=== PATIENT | male | born 1955 | race Caucasian/White ===

== ENCOUNTER 2019-09-06 07:24 | Emergency (ER) | payer BC, OTHER ==
[~2019-09-06] VITALS: Ht 172.2 cm; Wt 84.0 kg
[~2019-09-06 07:24] MED LIST: ASPI-198; ATEN25TA; ATOR80TA; CALC-196; CHOL10003; CLOP75TA; FEXO1TAB42; FISH1200; MULT-608; [UNRECOGNIZED DRUG - OTHER]
[2019-09-06] MEDS ORDERED: ASPIRIN 81 MG CHEW (CHILDREN'S ASA) PO ONE (07:45)
--- NOTE | 2019-09-06 07:50 | ED Chest Pain ---
General Chief Complaint: Chest Pain Stated Complaint: NAUSEATED, SWEATS Source: patient Exam Limitations: no limitations History of Present Illness Date Seen by Provider: Sep 06, 2019 Time Seen by Provider: 07:28 Initial Comments Patient presents to ER by private conveyance with chief complaint that about half hour prior to arrival he began to experience some sweats, nausea without vomiting and a burning pain in his left upper chest by his shoulder. He has a hi story of indigestion as well as [address] Hernandez and Dr. Chatman. He took some antacids and jumped in the shower. The burning pain and nausea seems to have passed by the time he got to the ER. He typically takes 3 and a 24 mg of aspirin daily but he has not taken any of his morning meds yet. He does not have a history of diabetes or high blood pressure but he does have hyperlipidemia controlled with statins. He denies any coughing shortness of breath orthopnea or swelling weight gain fevers chills diarrhea or dysuria. Allergies and Home Medications Allergies Coded Allergies: No Known Drug Allergies (Verified Allergy, Unknown, 05/16/08) Patient Home Medication List Home Medication List Reviewed: Yes Review of Systems Review of Systems Constitutional: No chills; diaphoresis; No fever, No malaise EENTM: No Blurred Vision, No Double Vision Respiratory: Denies Cough, Denies Shortness of Air Cardiovascular: See HPI, Chest Pain; Denies Edema, Denies Irregular Heart Rate Gastrointestinal: Denies Abdomen Distended, Denies Abdominal Pain, Denies Constipated, Denies Diarrhea Genitourinary: Denies Burning, Denies Discharge Musculoskeletal: No back pain, No joint pain Past Kzucnnu-Jdytnm-Loramc Hx Patient Social History Alcohol Use: Denies Use Recreational Drug Use: No Smoking Status: Never a Smoker Past Medical History Reproductive Disorders: No Physical Exam Vital Signs Vital Signs - First Documented 09/06/19 07:29 Temp 36.0 Pulse 61 Resp 18 B/P (MAP) 160/95 (116) Pulse Ox 97 O2 Delivery Room Air Capillary Refill : Height, Weight, BMI Height: 5'9.00" Weight: 184lbs. oz. 83.056526cd; BMI Method:Stated General Appearance: No Apparent Distress, WD/WN HEENT: PERRL/EOMI, Pharynx Normal, Moist Mucous Membranes Neck: Full Range of Motion, Normal Inspection Respiratory: Lungs Clear, Normal Breath Sounds, No Accessory Muscle Use, No Respiratory Distress, Other (mild tenderness to anterior upper left chest wall) Cardiovascular: Regular Rate, Rhythm, No Edema, No Murmur, Normal Peripheral Pulses Gastrointestinal: Non Tender, Soft Extremity: Normal Capillary Refill, Normal Inspection, No Pedal Edema Neurologic/Psychiatric: Alert, Oriented x3 Skin: Normal Color, Warm/Dry Progress/Results/Core Measures Results/Orders Lab Results Laboratory Tests Test 09/06/19 07:35 09/06/19 09:23 Range/Units White Blood Count 5.1 4.3-11.0 10^3/uL Red Blood Count 5.51 4.35-5.85 10^6/uL Hemoglobin 15.4 13.3-17.7 G/DL Hematocrit 47 40-54 % Mean Corpuscular Volume 85 80-99 FL Mean Corpuscular Hemoglobin 28 25-34 PG Mean Corpuscular Hemoglobin Concent 33 32-36 G/DL Red Cell Distribution Width 13.3 10.0-14.5 % Platelet Count 161 130-400 10^3/uL Mean Platelet Volume 10.4 7.4-10.4 FL Neutrophils (%) (Auto) 59 42-75 % Lymphocytes (%) (Auto) 33 12-44 % Monocytes (%) (Auto) 6 0-12 % Eosinophils (%) (Auto) 2 0-10 % Basophils (%) (Auto) 0 0-10 % Neutrophils # (Auto) 3.0 1.8-7.8 X 10^3 Lymphocytes # (Auto) 1.7 1.0-4.0 X 10^3 Monocytes # (Auto) 0.3 0.0-1.0 X 10^3 Eosinophils # (Auto) 0.1 0.0-0.3 10^3/uL Basophils # (Auto) 0.0 0.0-0.1 10^3/uL Prothrombin Time 12.0 L 12.2-14.7 SEC INR Comment 0.9 0.8-1.4 Activated Partial Thromboplast Time 30 24-35 SEC Sodium Level 141 135-145 MMOL/L Potassium Level 3.6 3.6-5.0 MMOL/L Chloride Level 107 98-107 MMOL/L Carbon Dioxide Level 25 21-32 MMOL/L Anion Gap 9 5-14 MMOL/L Blood Urea Nitrogen 12 7-18 MG/DL Creatinine 1.02 0.60-1.30 MG/DL Estimat Glomerular Filtration Rate > 60 BUN/Creatinine Ratio 12 Glucose Level 148 H 70-105 MG/DL Calcium Level 9.4 8.5-10.1 MG/DL Corrected Calcium 9.1 8.5-10.1 MG/DL Magnesium Level 2.2 1.6-2.4 MG/DL Total Bilirubin 0.3 0.1-1.0 MG/DL Aspartate Amino Transf (AST/SGOT) 22 5-34 U/L Alanine Aminotransferase (ALT/SGPT) 29 0-55 U/L Alkaline Phosphatase 111 40-136 U/L Myoglobin 47.3 10.0-92.0 NG/ML Troponin I < 0.028 < 0.028 <0.028 NG/ML B-Type Natriuretic Peptide < 10.0 <100.0 PG/ML Total Protein 6.9 6.4-8.2 GM/DL Albumin 4.4 3.2-4.5 GM/DL My Orders Orders - JANE FOLEY Cbc With Automated Diff (09/06/19 07:42) Magnesium (09/06/19 07:42) Chest 1 View, Ap/Pa Only (09/06/19 07:42) Ekg Tracing (09/06/19 07:42) Cardiac Profile 1 (09/06/19 07:42) Comprehensive Metabolic Panel (09/06/19 07:42) Myoglobin Serum (09/06/19 07:42) Protime With Inr (09/06/19 07:42) Partial Thromboplastin Time (09/06/19 07:42) O2 (09/06/19 07:42) Monitor-Rhythm Ecg Trace Only (09/06/19 07:42) Lipid Panel (09/07/19 06:00) Ed Iv/Invasive Line Start (09/06/19 07:42) BNP (09/06/19 07:42) Aspirin Chewable Tablet (Baby Aspirin Ch (09/06/19 07:45) Troponin I (09/06/19 09:24) Medications Given in ED Current Medications Medications Dose Ordered Sig/Thad Route Start Time Stop Time Status Last Admin Dose Admin Aspirin 324 mg ONCE ONCE PO 09/06/19 07:45 09/06/19 07:46 DC 09/06/19 07:47 324 MG Vital Signs/I&O 09/06/19 07:29 Temp 36.0 Pulse 61 Resp 18 B/P (MAP) 160/95 (116) Pulse Ox 97 O2 Delivery Room Air Progress Progress Note : Time: 07:50 Progress Note Unremarkable EKG. His symptoms seemed to improve either due to time or antacids. Plan to do a chest pain workup. If his symptoms come back we can try nitrogly cerin versus GI cocktail. He does not have any risk factors for pulmonary embolism. Wells score 0 points. Cardiac catheterization by Dr. Brar 2009 shows angiographically relatively mild coronary disease. Widely patent stents in the mid left anterior descending and mid right coronary arteries. Normal left ventricular end-diastolic pressure and systolic function of the lower limit of normal with an EF of 50%. Mild posterior basal hypokinesis. No significant mitral regurgitation. Aortic arch angiography did not indicate significant thoracic aortic aneurysm. If his initial troponin is normal then his heart score would be 3 points. We have discussed doing a rule out in the ER. Initial ECG Impression Date: Sep 06, 2019 Initial ECG Impression Time: 07:33 Initial ECG Rate: 59 Initial ECG Rhythm: Normal Sinus Initial ECG Intervals: Normal Initial ECG Impression: Normal, Nonspecific Changes Initial ECG Comparisson: Unchanged Comment Normal sinus rhythm without ST elevation or depression. Left axis deviation. Diagnostic Imaging Diagonstic Imaging: Xray Plain Films/CT/US/NM/MRI: chest (1v) Comments NAME: [facility] REC#: [id number] PT STATUS: REG ER : 1955 PHYSICIAN: JANE FOLEY MD ADMIT DATE: 09/06/19/ER Draft Date of Exam:09/06/19 CHEST 1 VIEW, AP/PA ONLY INDICATION: Cold sweats, nausea, chest pain COMPARISON: 02/25/2010 TECHNIQUE: Single radiograph of the chest dated 09/06/2019 FINDINGS: The cardiac silhouette is within normal limits in size. No significant pulmonary vascular congestion. The lungs are clear. No pleural effusion. No pneumothorax. Degenerative changes without acute osseous abnormality. IMPRESSION: Similar examination without acute cardiopulmonary abnormality. Dictated on workstation # [id number] Dict: 09/06/19821 Trans: 09/06/19825 RIGO [id number] Interpreted by: MARGARITA LEDEZMA MD Electronically signed by: Reviewed: Reviewed by Me Consults : Consulting Physician: SHANTA HERNANDEZ MD [facility] Consults Notes 0830: Discussed case lab EKG imaging and history and he agrees with a ER rule out and follow-up in the clinic tomorrow. Departure Impression Primary Impression: Chest pain Qualified Codes: R07.9 - Chest pain, unspecified Disposition: 01 HOME, SELF-CARE Condition: Stable Departure-Patient Inst. Decision time for Depature: 10:15 Referrals: HIRO CHATMAN MD (PCP) Primary Care Physician SHANTA HERNANDEZ MD [facility] Patient Instructions: Chest Pain (DC) Add. Discharge Instructions: Call Dr. Hernandez's office and request an appointment tomorrow. If you have persistent chest pain that does not respond to antacids then please return to the ER. Resume your medications as prescribed. All discharge instructions reviewed with patient and/or family. Voiced understanding. Work/School Note: Work Release Form Date Seen in the Emergency Department: Sep 06, 2019 Return to Work: Sep 07, 2019 Restrictions: No Restrictions JANE FOLEY Sep 06, 2019 07:50
[2019-09-06 07:51] LABS: BASOPHILS % (AUTO) 0 % (0-10); EOSINOPHILS # (AUTO) 0.1 10^3/uL (0.0-0.3); EOSINOPHILS % (AUTO) 2 % (0-10); HEMATOCRIT 47 % (40-54); HEMOGLOBIN 15.4 G/DL (13.3-17.7); LYMPHOCYTES # (AUTO) 1.7 X 10^3 (1.0-4.0); LYMPHOCYTES % (AUTO) 33 % (12-44); MEAN CORPUSCULAR HEMOGLOBIN 28 PG (25-34); MEAN CORPUSCULAR HGB CONC 33 G/DL (32-36); MEAN CORPUSCULAR VOLUME 85 FL (80-99); MEAN PLATELET VOLUME 10.4 FL (7.4-10.4); MONOCYTES # (AUTO) 0.3 X 10^3 (0.0-1.0); MONOCYTES % (AUTO) 6 % (0-12); NEUTROPHILS % (AUTO) 59 % (42-75); PLATELET COUNT 161 10^3/uL (130-400); RED CELL DISTRIBUTION WIDTH 13.3 % (10.0-14.5); WHITE BLOOD COUNT 5.1 10^3/uL (4.3-11.0)
[2019-09-06 08:00] LABS: INR 0.9 (0.8-1.4)
--- NOTE | 2019-09-06 08:00 | NUR ---
PATIENT DECLINED BLANKET WHEN ASKED.
[2019-09-06 08:08] LABS: ALANINE AMINOTRANSFERASE 29 U/L (0-55); ALBUMIN 4.4 GM/DL (3.2-4.5); ALKALINE PHOSPHATASE 111 U/L (40-136); BILIRUBIN,TOTAL 0.3 MG/DL (0.1-1.0); BUN/CREATININE RATIO 12; CALCIUM 9.4 MG/DL (8.5-10.1); CARBON DIOXIDE 25 MMOL/L (21-32); CHLORIDE 107 MMOL/L (98-107); CREATININE SERUM 1.02 MG/DL (0.60-1.30); GFR ESTIMATED > 60; GLUCOSE 148 MG/DL (70-105); MAGNESIUM 2.2 MG/DL (1.6-2.4); POTASSIUM 3.6 MMOL/L (3.6-5.0); SODIUM 141 MMOL/L (135-145); TOTAL PROTEIN 6.9 GM/DL (6.4-8.2)
--- NOTE | 2019-09-06 08:25 | NUR ---
PATIENT INFORMED BY DR FOLEY THAT 1ST TROPONIN WAS OK WOULD DRAW A 2ND ONE AT 0930 FOR RULE OUT.
--- NOTE | 2019-09-06 08:26 | Diagnostic Imaging Report ---
INDICATION: Cold sweats, nausea, chest pain COMPARISON: 02/25/2010 TECHNIQUE: Single radiograph of the chest dated 09/06/2019 FINDINGS: The cardiac silhouette is within normal limits in size. No significant pulmonary vascular congestion. The lungs are clear. No pleural effusion. No pneumothorax. Degenerative changes without acute osseous abnormality. IMPRESSION: Similar examination without acute cardiopulmonary abnormality. Dictated by: Dictated on workstation # [id number]
--- NOTE | 2019-09-06 09:27 | NUR ---
2ND TROPONIN DRAWN AND SENT TO LAB.
[2019-09-06 10:23] VITALS: BP 133/82
== END 2019-09-06 10:18 | disposition home or self-care (01) ==
LOC: EDUNIT# 07:24 → ER 07:27
DX: R07.9 Chest pain, unspecified (principal)
CPT/HCPCS: 36415; 71045; 80053; 83735; 83874; 83880; 84484; 85025; 85610; 85730; 93005; 93041

== ENCOUNTER → 2019-11-07 | Outpatient (CLI) | payer OTHER ==
[~2019-11-07] MED LIST changes: +CATHETER FLUSH 10 ML SYR IV PRN
[2019-11-07 13:18] VITALS: BP 164/91
[2019-11-07 13:34] VITALS: BP 252/81
--- NOTE | 2019-11-07 16:22 | STRESS TEST ---
DATE OF SERVICE: 11/07/2019 RESTING AND POST EXERCISE TECHNETIUM-99M TETROFOSMIN SPECT CT IMAGING ORDERING PHYSICIAN: Dr. Hernandez. PRIMARY PHYSICIAN: Dr. Chatman. CLINICAL DIAGNOSES: Coronary artery disease. Baseline images were carried out after injection of 10.02 mCi of technetium-99m Tetrofosmin. This was followed by exercise on a treadmill. Ulises protocol was employed. Heart rate response to exercise was normal. Blood pressure response to exercise was hypertensive. There was considerable baseline artifact at peak exercise, but there did not appear to be significant ST segment deviation. Test was stopped on account of fatigue. After the patient had attained more than 85% of maximum predicted heart rate and had indicated that he would not be able go for more than another minute, 29.5 mCi of technetium-99m Tetrofosmin were injected and the exercise was continued for another minute. The patient tolerated the procedure well. Review of images at rest and following stress does not indicate distinct perfusion defects consistent with significant myocardial ischemia or infarction. Gated images show normal global left ventricular systolic function, normal regional wall motion. Left ventricular ejection fraction is calculated to be 74%. Left ventricular end diastolic volume is 63 mL. TID is absent (1). CONCLUSIONS: 1. No evidence of any significant myocardial ischemia or infarction on this study. 2. Normal regional wall motion. 3. Normal global left ventricular systolic function with a calculated ejection fraction of 74%. Job ID: [id number] DocumentID: [id number] Dictated Date: 11/07/2019 15:38:50 [employer] Date: 11/07/2019 16:21:20 Dictated By: SHANTA HERNANDEZ MD, MA, FACP, FACC,
== END ==
LOC: CARD 11:51
PROVIDERS: ATTEND Internal Medicine Cardiovascular Disease
DX: I25.10 Atherosclerotic heart disease of native coronary artery without angina pectoris (principal); I65.29 Occlusion and stenosis of unspecified carotid artery; E78.5 Hyperlipidemia, unspecified
CPT/HCPCS: 78452; 93017

== ENCOUNTER → 2019-11-13 | Outpatient (CLI) | payer OTHER ==
[~2019-11-13] MED LIST changes: -CATHETER FLUSH 10 ML SYR IV PRN
== END ==
LOC: CARD 07:35
PROVIDERS: ATTEND Internal Medicine Cardiovascular Disease
DX: I25.10 Atherosclerotic heart disease of native coronary artery without angina pectoris (principal); I77.89 Other specified disorders of arteries and arterioles; R07.9 Chest pain, unspecified; E78.5 Hyperlipidemia, unspecified; Z79.82 Long term (current) use of aspirin; Z79.899 Other long term (current) drug therapy
CPT/HCPCS: 93306

== ENCOUNTER 2021-05-12 08:04 | Emergency (ER) | payer OTHER ==
[~2021-05-12] VITALS: Ht 175 cm; Wt 81.8 kg
[2021-05-12] MEDS ORDERED: KETOROLAC 30 MG/ML VIAL IVP STA (08:25)
[2021-05-12 08:34] LABS: BASOPHILS % (AUTO) 0 % (0-10); EOSINOPHILS # (AUTO) 0.1 10^3/uL (0.0-0.3); EOSINOPHILS % (AUTO) 2 % (0-10); HEMATOCRIT 48 % (40-54); HEMOGLOBIN 15.5 g/dL (13.3-17.7); LYMPHOCYTES # (AUTO) 1.4 10^3/uL (1.0-4.0); LYMPHOCYTES % (AUTO) 30 % (12-44); MEAN CORPUSCULAR HEMOGLOBIN 29 pg (25-34); MEAN CORPUSCULAR HGB CONC 32 g/dL (32-36); MEAN CORPUSCULAR VOLUME 88 fL (80-99); MEAN PLATELET VOLUME 10.2 fL (9.0-12.2); MONOCYTES # (AUTO) 0.3 10^3/uL (0.0-1.0); MONOCYTES % (AUTO) 7 % (0-12); NEUTROPHILS # (AUTO) 2.9 10^3/uL (1.8-7.8); NEUTROPHILS % (AUTO) 62 % (42-75); PLATELET COUNT 174 10^3/uL (130-400); WHITE BLOOD COUNT 4.7 10^3/uL (4.3-11.0)
[2021-05-12 08:43] LABS: ALBUMIN 4.2 GM/DL (3.2-4.5); CHLORIDE 104 MMOL/L (98-107); SODIUM 140 MMOL/L (135-145)
[2021-05-12 08:44] LABS: CALCIUM 8.9 MG/DL (8.5-10.1)
[2021-05-12 08:45] LABS: GLUCOSE 168 MG/DL (70-105); TOTAL PROTEIN 6.7 GM/DL (6.4-8.2)
[2021-05-12 08:46] LABS: CARBON DIOXIDE 25 MMOL/L (21-32)
[2021-05-12 08:47] LABS: BILIRUBIN,TOTAL 0.5 MG/DL (0.1-1.0)
[2021-05-12 08:49] LABS: ALKALINE PHOSPHATASE 83 U/L (40-136); CREATININE SERUM 0.89 MG/DL (0.60-1.30); GFR ESTIMATED > 60
[2021-05-12 08:50] LABS: BUN/CREATININE RATIO 15
--- NOTE | 2021-05-12 08:51 | Diagnostic Imaging Report ---
INDICATION: Chest pain. Portable chest 8:37 AM FINDINGS: Heart size and pulmonary vascularity are normal. Lungs are clear. There are no effusions or pneumothoraces. IMPRESSION: Negative chest. Dictated by: Dictated on workstation # [id number]
[2021-05-12 08:52] LABS: ALANINE AMINOTRANSFERASE 34 U/L (0-55)
--- NOTE | 2021-05-12 08:53 | ED Chest Pain ---
General Chief Complaint: Chest Pain Stated Complaint: CHEST PAIN Nursing Triage Note: C/O CHEST PAIN THAT GOES TO LEFT ARM AND STATES LEFT HAND IS NUMB. STARTED LAST HS Nursing Sepsis Screen: No Definite Risk Source: patient Exam Limitations: no limitations History of Present Illness Date Seen by Provider: May 12, 2021 Time Seen by Provider: 08:11 Initial Comments Here with report of chest pain that is central and radiates to the left arm. States the left hand is slightly numb. Started last night. Has had intermittent episodes that seem to be worsening over time. Does have history of previous heart stents in his 40s and 50s with angioplasty a few years ago. Marilee trujillos with Dr. BUTCHER. Does take aspirin 324 mg daily and has had that 12 hours ago. 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 Despite trying to eat and drink normally, things have not improved as he was have suspected so presents for further evaluation. Timing/Duration: changing over time, intermittent, 12-24 hours Severity/Quality: moderate, pressure Location: central Radiation: arms (Left) Activities at Onset: other Prior CP/Workup: cardiac cath, echocardiography ASA po [employer]: Yes NTG SL [employer]: No Associated Symptoms: No abdominal pain, No back pain, No diaphoresis, No fatigue, No fever/chills, No nausea/vomiting, No shortness of breath, No weakness Allergies and Home Medications Allergies Coded Allergies: No Known Drug Allergies (Verified , 05/16/08) Patient Home Medication List Home Medication List Reviewed: Yes Review of Systems Review of Systems Constitutional: see HPI EENTM: No Symptoms Reported Respiratory: Denies Cough, Denies Shortness of Air Cardiovascular: Chest Pain; Denies Edema Gastrointestinal: Denies Nausea, Denies Vomiting Genitourinary: No Symptoms Reported Musculoskeletal: see HPI; No back pain; muscle pain Skin: no symptoms reported Psychiatric/Neurological: No Symptoms Reported All Other Systems Reviewed Negative Unless Noted: Yes Past Eyotsfm-Lfwkqg-Lowfus Hx Past Med/Social Hx: Reviewed Nursing Past Med/Soc Hx Patient Social History Alcohol Use: Denies Use Smoking Status: Never a Smoker Recent Infectious Disease Expo: No Recent Hopitalizations: No Seasonal Allergies Seasonal Allergies: No Past Medical History Surgeries: Yes (lt shoulder reduction, bilat knee cartilage removal) Respiratory: No Cardiac: Yes High Cholesterol Neurological: No Reproductive Disorders: No Genitourinary: No Gastrointestinal: No Musculoskeletal: No Endocrine: No HEENT: No Cancer: No Psychosocial: No Integumentary: No Blood Disorders: No Family Medical History Reviewed Nursing Family Hx Physical Exam Vital Signs Vital Signs - First Documented 05/12/21 08:17 Temp 36.7 Pulse 56 Resp 18 B/P (MAP) 145/95 (112) Pulse Ox 98 O2 Delivery Room Air Capillary Refill : Less Than 3 Seconds Height, Weight, BMI Height: 5'9.00" Weight: 184lbs. oz. 83.321310zr; 26.00 BMI Method:Stated General Appearance: No Apparent Distress, WD/WN HEENT: PERRL/EOMI, Pharynx Normal Neck: Non Tender, Supple Respiratory: Lungs Clear, Normal Breath Sounds Cardiovascular: Regular Rate, Rhythm, No Murmur Gastrointestinal: Non Tender, Soft Extremity: Normal Range of Motion, Non Tender Neurologic/Psychiatric: Alert, Oriented x3 Skin: Normal Color, Warm/Dry Progress/Results/Core Measures Results/Orders Lab Results Laboratory Tests Test 05/12/21 08:12 05/12/21 10:15 05/12/21 10:22 Range/Units White Blood Count 4.7 4.3-11.0 10^3/uL Red Blood Count 5.44 4.30-5.52 10^6/uL Hemoglobin 15.5 13.3-17.7 g/dL Hematocrit 48 40-54 % Mean Corpuscular Volume 88 80-99 fL Mean Corpuscular Hemoglobin 29 25-34 pg Mean Corpuscular Hemoglobin Concent 32 32-36 g/dL Red Cell Distribution Width 13.1 10.0-14.5 % Platelet Count 174 130-400 10^3/uL Mean Platelet Volume 10.2 9.0-12.2 fL Immature Granulocyte % (Auto) 0 % Neutrophils (%) (Auto) 62 42-75 % Lymphocytes (%) (Auto) 30 12-44 % Monocytes (%) (Auto) 7 0-12 % Eosinophils (%) (Auto) 2 0-10 % Basophils (%) (Auto) 0 0-10 % Neutrophils # (Auto) 2.9 1.8-7.8 10^3/uL Lymphocytes # (Auto) 1.4 1.0-4.0 10^3/uL Monocytes # (Auto) 0.3 0.0-1.0 10^3/uL Eosinophils # (Auto) 0.1 0.0-0.3 10^3/uL Basophils # (Auto) 0.0 0.0-0.1 10^3/uL Immature Granulocyte # (Auto) 0.0 0.0-0.1 10^3/uL Sodium Level 140 135-145 MMOL/L Potassium Level 4.0 3.6-5.0 MMOL/L Chloride Level 104 98-107 MMOL/L Carbon Dioxide Level 25 21-32 MMOL/L Anion Gap 11 5-14 MMOL/L Blood Urea Nitrogen 13 7-18 MG/DL Creatinine 0.89 0.60-1.30 MG/DL Estimat Glomerular Filtration Rate > 60 BUN/Creatinine Ratio 15 Glucose Level 168 H 70-105 MG/DL Calcium Level 8.9 8.5-10.1 MG/DL Corrected Calcium 8.7 8.5-10.1 MG/DL Magnesium Level 2.0 1.6-2.4 MG/DL Total Bilirubin 0.5 0.1-1.0 MG/DL Aspartate Amino Transf (AST/SGOT) 28 5-34 U/L Alanine Aminotransferase (ALT/SGPT) 34 0-55 U/L Alkaline Phosphatase 83 40-136 U/L Myoglobin 56.4 10.0-92.0 NG/ML Troponin I < 0.028 < 0.028 <0.028 NG/ML Total Protein 6.7 6.4-8.2 GM/DL Albumin 4.2 3.2-4.5 GM/DL D-Dimer < 0.27 0.00-0.49 UG/ML My Orders Orders - CYNTHIA NETTLES MD Cbc With Automated Diff (05/12/21 08:25) Magnesium (05/12/21 08:25) Chest 1 View, Ap/Pa Only (05/12/21 08:25) Ekg Tracing (05/12/21 08:25) Comprehensive Metabolic Panel (05/12/21 08:25) Myoglobin Serum (05/12/21 08:25) O2 (05/12/21 08:25) Monitor-Rhythm Ecg Trace Only (05/12/21 08:25) Lipid Panel (05/13/21 06:00) Ed Iv/Invasive Line Start (05/12/21 08:25) Fibrin Degradation Products (05/12/21 08:25) Troponin I (05/12/21 08:25) Ketorolac Injection (Toradol Injection) (05/12/21 08:25) Troponin I (05/12/21 10:15) Vital Signs/I&O 05/12/21 05/12/21 08:17 08:17 Temp 36.7 Pulse 56 Resp 18 B/P (MAP) 145/95 (112) Pulse Ox 98 O2 Delivery Room Air Room Air Blood Pressure Mean: 112 Progress Progress Note : Progress Note Seen and evaluated. IV, labs, chest x-ray and EKG ordered. Toradol 30 mg IV ordered. Monitor patient. 1030: Pain resolved. We will repeat troponin and monitor. 1115: Pain still resolved. Second set of troponin is negative. I did discuss the case with Dr. BUTCHER. He will see the patient in office on Wednesday. This was discussed with the patient who will call and make appointment for Wednesday. Discharged home with return precautions. Patient verbalized understanding of instructions and agreement with plan. Initial ECG Impression Date: May 12, 2021 Initial ECG Impression Time: 08:07 Initial ECG Rate: 56 Initial ECG Rhythm: Normal Sinus Comment Sinus rhythm with left axis deviation. No evidence of ST elevation [place]. Similar to previous of 09/06/2019. Interpreted by me. Diagnostic Imaging Diagonstic Imaging: Xray Plain Films/CT/US/NM/MRI: chest Comments NAME: [facility] REC#: [id number] PT STATUS: REG ER : 1955 PHYSICIAN: CYNTHIA NETTLES MD ADMIT DATE: 05/12/21/ER Draft Date of Exam:05/12/21 CHEST 1 VIEW, AP/PA ONLY INDICATION: Chest pain. Portable chest 8:37 AM FINDINGS: Heart size and pulmonary vascularity are normal. Lungs are clear. There are no effusions or pneumothoraces. IMPRESSION: Negative chest. Dictated on workstation # [id number] Dict: 05/12/2149 Trans: 05/12/2150 [id number] Interpreted by: CYNTHIA STEARNS MD Electronically signed by: Departure Impression Primary Impression: Chest pain Qualified Codes: R07.9 - Chest pain, unspecified Disposition: HOME, SELF-CARE Condition: Improved Departure-Patient Inst. Decision time for Depature: 11:16 Referrals: [facility], FLOYD R MD (PCP/Family) Primary Care Physician Patient Instructions: Chest Pain (DC) Add. Discharge Instructions: All discharge instructions reviewed with patient and/or family. Voiced understanding. Continue home medications as previously prescribed. Call Dr. BUTCHER's office today for appointment for Wednesday. Let them know the case was discussed with him and he wants to see you on Wednesday. Return for worse pain, fever, vomiting, weakness, breathing problems or other concerns as needed. Copy Copies To 1: RONNY JONES MD Copies To 2: SHANTA BUTCHER MD [facility] CYNTHIA NETTLES MD May 12, 2021 08:53
[2021-05-12 11:20] VITALS: BP 125/81
== END 2021-05-12 11:25 | disposition home or self-care (01) ==
LOC: EDUNIT# 08:04 → ER 08:07
DX: R07.9 Chest pain, unspecified (principal)
CPT/HCPCS: 36415; 71045; 80053; 83735; 83874; 84484; 85025; 85379; 93005

== ENCOUNTER 2021-05-13 16:36 | Inpatient (IN) | payer OTHER ==
[~2021-05-13] VITALS: Ht 175.3 cm; Wt 82.7 kg
[2021-05-13] VITALS (9 sets, daily range): BP systolic 106–184; BP diastolic 57–104
--- NOTE | 2021-05-13 16:56 | ED Chest Pain ---
General Stated Complaint: CHEST PAIN Source: patient Exam Limitations: no limitations History of Present Illness Date Seen by Provider: May 13, 2021 Time Seen by Provider: 16:40 Initial Comments Patient is a 66-year-old man who presents to the emergency department today with a chief complaint of substernal chest pain. Patient was seen in the emergency department yesterday with similar complaints of pain. He complains of being just a little bit nauseated. No significant shortness of breath. Patient states that he was given a muscle relaxer and some pain meds in the emergency department yesterday and felt better at discharge. He states today when he was attempting to make of appointment with Dr. Brar he started having significantly increased pain that he rated a "9 or 10". He currently rates his discomfort at a "7". Patient states that this pain reminds him of the pain that he had when he had prior stents placed approximately 10 and 20 years ago. Patient denies any recent illnesses such as fevers, cough, congestion, cold symptoms. He denies any vomiting or diarrhea. No urinary complaints. He states he took a full-strength aspirin just prior to coming to the emergency department today. All other review of systems reviewed and negative except as stated above. Timing/Duration: 1-3 hours Severity/Quality: moderate, pressure, tightness Location: substernal Radiation: no radiation Activities at Onset: none ASA po QUANTITY SURVEYOR: Yes NTG SL QUANTITY SURVEYOR: No Associated Symptoms: denies symptoms Allergies and Home Medications Allergies Uncoded Allergies: morphin (Adverse Reaction, Severe, 05/14/21) Home Medications Acetaminophen 500 Mg Tablet, 1,000 MG PO Q8H PRN for PAIN-MILD (1-4), (Reported) Last Action: Reviewed Aspirin 81 Mg , 81 MG PO DAILY Prescribed by: JORDEN STEVENS on 05/15/21 0645 Atorvastatin Calcium 80 Mg Tablet, 80 MG PO HS, (Reported) Last Action: Reviewed Calcium Carbonate 300 Mg Tab.chew, 300-600 MG PO Q6H PRN for HEARTBURN, (Reported) Last Action: Reviewed Calcium Carbonate 500 Mg Tablet, 500 MG PO HS, (Reported) Last Action: Reviewed Diclofenac Sodium 100 Gm Gel..gram., 1 APPLIC TP QID PRN for PAIN-BREAKTHROUGH, (Reported) APPLIES TO KNEES Last Action: Reviewed Fexofenadine HCl 180 Mg Tablet, 180 MG PO HS, (Reported) Last Action: Reviewed Glucosamine Sulfate 2Kcl 1,000 Mg Tablet, 2,000 MG PO HS, (Reported) Last Action: Reviewed Multivit-Min/Hrb Cb121 1 Each Capsule, 2 EACH PO HS, (Reported) Last Action: Reviewed Reddick-3/Dha/Epa/Fish Oil 1 Each Capsule, 4 EACH PO HS, (Reported) Last Action: Reviewed Potassium Gluconate 99 Mg Tablet.er, 198 MG PO HS, (Reported) Last Action: Reviewed Ticagrelor 90 Mg Tablet, 90 MG PO BID Prescribed by: JORDEN STEVENS on 05/15/21 0645 Ubidecarenone 100 Mg Capsule, 100 MG PO HS, (Reported) Last Action: Reviewed Patient Home Medication List Home Medication List Reviewed: Yes Review of Systems Review of Systems Constitutional: see HPI EENTM: No Symptoms Reported Respiratory: No Symptoms Reported Cardiovascular: Chest Pain Gastrointestinal: No Symptoms Reported Genitourinary: No Symptoms Reported Musculoskeletal: no symptoms reported Skin: no symptoms reported All Other Systems Reviewed Negative Unless Noted: Yes Past Boduoks-Fqxlwl-Gvaxjo Hx Patient Social History Recent Hopitalizations: No Seasonal Allergies Seasonal Allergies: No Past Medical History Surgeries: Yes (lt shoulder reduction, bilat knee cartilage removal) Respiratory: No Cardiac: Yes High Cholesterol Neurological: No Reproductive Disorders: No Genitourinary: No Gastrointestinal: No Musculoskeletal: No Endocrine: No HEENT: No Cancer: No Psychosocial: No Integumentary: No Blood Disorders: No Physical Exam Vital Signs Vital Signs - First Documented Capillary Refill : Height, Weight, BMI Height: 5'9.00" Weight: 184lbs. oz. 83.818014lz; 26.00 BMI Method:Stated General Appearance: No Apparent Distress, WD/WN Neck: Normal Inspection Respiratory: Lungs Clear, Normal Breath Sounds, No Accessory Muscle Use, No Respiratory Distress Cardiovascular: Regular Rate, Rhythm, Normal Peripheral Pulses Gastrointestinal: Non Tender, Soft Extremity: Normal Capillary Refill, Normal Inspection, Normal Range of Motion, Non Tender, No Calf Tenderness Neurologic/Psychiatric: Alert, Oriented x3, No Motor/Sensory Deficits, Normal Mood/Affect Skin: Normal Color, Warm/Dry Progress/Results/Core Measures Results/Orders Lab Results Laboratory Tests Test 05/13/21 16:45 Range/Units White Blood Count 5.6 4.3-11.0 10^3/uL Red Blood Count 5.30 4.30-5.52 10^6/uL Hemoglobin 15.1 13.3-17.7 g/dL Hematocrit 46 40-54 % Mean Corpuscular Volume 87 80-99 fL Mean Corpuscular Hemoglobin 29 25-34 pg Mean Corpuscular Hemoglobin Concent 33 32-36 g/dL Red Cell Distribution Width 13.1 10.0-14.5 % Platelet Count 172 130-400 10^3/uL Mean Platelet Volume 10.2 9.0-12.2 fL Immature Granulocyte % (Auto) 0 % Neutrophils (%) (Auto) 65 42-75 % Lymphocytes (%) (Auto) 26 12-44 % Monocytes (%) (Auto) 8 0-12 % Eosinophils (%) (Auto) 1 0-10 % Basophils (%) (Auto) 0 0-10 % Neutrophils # (Auto) 3.7 1.8-7.8 10^3/uL Lymphocytes # (Auto) 1.4 1.0-4.0 10^3/uL Monocytes # (Auto) 0.4 0.0-1.0 10^3/uL Eosinophils # (Auto) 0.1 0.0-0.3 10^3/uL Basophils # (Auto) 0.0 0.0-0.1 10^3/uL Immature Granulocyte # (Auto) 0.0 0.0-0.1 10^3/uL Sodium Level 141 135-145 MMOL/L Potassium Level 4.0 3.6-5.0 MMOL/L Chloride Level 105 98-107 MMOL/L Carbon Dioxide Level 25 21-32 MMOL/L Anion Gap 11 5-14 MMOL/L Blood Urea Nitrogen 16 7-18 MG/DL Creatinine 0.85 0.60-1.30 MG/DL Estimat Glomerular Filtration Rate > 60 BUN/Creatinine Ratio 19 Glucose Level 119 H 70-105 MG/DL Calcium Level 9.1 8.5-10.1 MG/DL Total Creatine Kinase 119 30-200 U/L Creatine Kinase MB 3.2 <6.6 NG/ML Troponin I < 0.028 <0.028 NG/ML My Orders Orders - KASI ROONEY MD Ed Iv/Invasive Line Start (05/13/21 16:56) Cbc With Automated Diff (05/13/21 16:56) Basic Metabolic Panel (05/13/21 16:56) Creatine Kinase (05/13/21 16:56) Creatine Kinase Mb (05/13/21 16:56) Troponin I (05/13/21 16:56) Ekg Tracing (05/13/21 16:56) Nitroglycerin 0.4 Mg Btl 25's (Nitrostat (05/13/21 17:00) Fentanyl Inj (Sublimaze Injection) (05/13/21 17:30) Medications Given in ED Vital Signs/I&O 05/13/21 05/13/21 16:38 16:38 Temp 36.9 Pulse 65 Resp 20 B/P (MAP) 184/101 (128) O2 Delivery Room Air Room Air Progress Progress Note : Time: 18:03 Progress Note Patient is feeling better after sublingual nitro x1 and then fentanyl 25 mcg IV. Case is discussed with Dr. Diana gallego for cardiology as well as the patient's primary care physician who accepts the patient for admission Initial ECG Impression Date: May 13, 2021 Initial ECG Impression Time: 16:43 Initial ECG Rate: 62 Initial ECG Rhythm: Normal Sinus Initial ECG Intervals: Normal Initial ECG Impression: Normal Departure Communication (Admissions) Time/Spoke to Admitting Phy: 17:[address] Waldrop accepts patient for admission Time/Spoke to Consulting Phy: 17:[address] Diana gallego for cardiology recommends n.p.o. after midnight Impression Primary Impression: Unstable angina Additional Impression: History of coronary artery disease Disposition: ADMITTED INPATIENT Condition: Stable Admissions Decision to Admit Reason: Admit from ER (General) Decision to Admit/Date: May 13, 2021 Time/Decision to Admit Time: 18:03 Departure-Patient Inst. Referrals: HIRO CLEMENTS MD (PCP/Family) Primary Care Physician Scripts Aspirin (Aspirin EC) 81 Mg Tablet. 81 MG PO DAILY, #30 TAB 4 Refills Prov: JORDEN STEVENS MD 05/15/21 Ticagrelor (Brilinta) 90 Mg Tablet 90 MG PO BID, #60 TAB 3 Refills Prov: JORDEN STEVENS MD 05/15/21 KASI ROONEY MD May 13, 2021 16:56
[2021-05-13] MEDS ORDERED: NITROGLYCERIN 0.4 MG SL TABS BTL 25'S SL PRN (17:00)
[2021-05-13 17:02] LABS: BASOPHILS % (AUTO) 0 % (0-10); EOSINOPHILS # (AUTO) 0.1 10^3/uL (0.0-0.3); EOSINOPHILS % (AUTO) 1 % (0-10); HEMATOCRIT 46 % (40-54); HEMOGLOBIN 15.1 g/dL (13.3-17.7); LYMPHOCYTES # (AUTO) 1.4 10^3/uL (1.0-4.0); LYMPHOCYTES % (AUTO) 26 % (12-44); MEAN CORPUSCULAR HEMOGLOBIN 29 pg (25-34); MEAN CORPUSCULAR HGB CONC 33 g/dL (32-36); MEAN CORPUSCULAR VOLUME 87 fL (80-99); MEAN PLATELET VOLUME 10.2 fL (9.0-12.2); MONOCYTES # (AUTO) 0.4 10^3/uL (0.0-1.0); MONOCYTES % (AUTO) 8 % (0-12); NEUTROPHILS # (AUTO) 3.7 10^3/uL (1.8-7.8); NEUTROPHILS % (AUTO) 65 % (42-75); PLATELET COUNT 172 10^3/uL (130-400); WHITE BLOOD COUNT 5.6 10^3/uL (4.3-11.0)
[2021-05-13 17:11] LABS: CHLORIDE 105 MMOL/L (98-107); SODIUM 141 MMOL/L (135-145)
[2021-05-13 17:12] LABS: CALCIUM 9.1 MG/DL (8.5-10.1)
[2021-05-13 17:13] LABS: GLUCOSE 119 MG/DL (70-105)
[2021-05-13 17:14] LABS: CARBON DIOXIDE 25 MMOL/L (21-32)
[2021-05-13 17:17] LABS: CREATININE SERUM 0.85 MG/DL (0.60-1.30); GFR ESTIMATED > 60
[2021-05-13 17:18] LABS: BUN/CREATININE RATIO 19
[2021-05-13 17:19] LABS: CREATINE KINASE 119 U/L (30-200)
[2021-05-13 17:25] LABS: CREATINE KINASE MB 3.2 NG/ML (<6.6)
[2021-05-13] MEDS ORDERED: fentaNYL INJ 100 MCG/2 ML AMP IVP ONE (17:30)
[2021-05-13] MEDS ORDERED: CATHETER FLUSH 10 ML SYR IV PRN (18:45)
[2021-05-13] MEDS ORDERED: RT-ALBUTEROL SULF 2.5 MG/3 ML PRE-MIX VIAL INH PRN (19:30)
[2021-05-13] MEDS: morphine INJ 4 MG/ML 1 ML (VIAL/SYRINGE) IV PRN (21:14)
[2021-05-13] MEDS: CATHETER FLUSH 10 ML SYR IV SCH (21:15)
[2021-05-13] MEDS: NITROGLYCERIN 0.4 MG SL TABS BTL 25'S SL PRN (21:19)
[2021-05-13] MEDS ORDERED: NS IV 1000 ML 1,000 ML ONE (21:32)
[2021-05-13] MEDS ORDERED: PANTOPRAZOLE 40 MG (PROTONIX) VIAL IV ONE (22:00)
--- NOTE | 2021-05-13 22:30 | Pulmonary Consultation ---
History of Present Illness History of Present Illness Date Seen by Provider: May 13, 2021 Time Seen by Provider: 22:30 Date of Admission 66 y/o male sent to the ICU from the medical floor for chest pain. Troponns drawn and were normal EKG: no stemi or ST depressions Given NTG and morphine and a fluid bolus for hypotension Cardiology on consult PLAN: serial troponins and EKGs History of Present Illness 66 y/o male admitted to ICU with chest pain, negative troponins and EKGs Allergies and Home Medications Allergies Coded Allergies: No Known Drug Allergies (Verified , 05/16/08) Past Medical/Social/Family Hx Patient Social History Tobacco Use?: No Smoking Status: Never a Smoker Smokeless Tobacco Frequency: Never a User Use of E-Cig and/or Vaping dev: No Substance use?: No Alcohol Use?: Yes Alcohol type: Beer Alcohol Frequency: Several times a month Pt stated abuse/neglect: No Immunizations Up To Date Influenza Vaccine Up-to-Date: Yes; Up-to-Date First/Initial COVID19 Vaccinat: 01/29/21 Second COVID19 Vaccination Viet: JANUARY 2021 Tetanus Booster (TDap): More Than 5 Years Hepatitis A: No Hepatitis B: No TB Skin Test: None Current Status Advance Directives: Yes Advance Directive Location: [employer] Communicates: Verbally Primary Language: Yoruba Preferred Spoken Language: Yoruba Is interpretation needed?: No Implanted or Applied Medical D: None Review of Systems Constitutional: No no symptoms reported, No see HPI, No chills, No diaphoresis, No dizziness, No fever, No malaise, No weakness, No weight gain, No weight loss, No other EENTM: No see HPI, No no symptoms reported, No ear discharge, No hearing loss, No ear pain, No blurred vision, No double vision, No eye pain, No tearing, No vision loss, No dental problems, No hoarseness, No mouth pain, No mouth swelling, No epistaxis, No nose congestion, No nose pain, No throat pain, No throat swelling, No other Respiratory: No no symptoms reported, No see HPI, No cough, No dyspnea on exertion, No hemoptysis, No orthopnea, No phlegm, No short of breath, No stridor, No wheezing, No other Cardiovascular: chest pain Gastrointestinal: No RUQ, No LUQ, No RLQ, No LLQ, No no symptoms reported, No see HPI, No abdominal pain, No constipation, No diarrhea, No dysphagia, No hematemesis, No heartburn, No jaundice, No loss of appetite, No melena, No nausea, No vomiting, No other Genitourinary: No no symptoms reported, No see HPI, No decreased output, No discharge, No dysuria, No frequency, No hematuria, No hesitancy, No incontinence, No nocturia, No pain, No other Skin: No no symptoms reported, No see HPI, No change in color, No change in hair/nails, No dryness, No hx of skin cancer, No lesions, No lumps, No pruritus, No rash, No other Psychiatric/Neurological: Denies No Symptoms Reported, Denies See HPI, Denies Anxiety, Denies Depressed, Denies Emotional Problems, Denies Headache, Denies Numbness, Denies Paresthesia, Denies Pre-Existing Deficit, Denies Seizure, Denies Tingling, Denies Tremors, Denies Weakness, Denies Other All Other Systems Reviewed Negative Unless Noted: Yes (Negative excepted noted.) Sepsis Event Evaluation Height, Weight, BMI Height: 5'9.00" Weight: 184lbs. oz. 83.555483se; 26.91 BMI Method:Stated Exam Exam Patient acknowledged, consented, and participated in this virtual visit which was conducted using real time audio/video Vital Signs Date Time Temp Pulse Resp B/P (MAP) Pulse Ox O2 Delivery O2 Flow Rate FiO2 05/13/21 20:14 36.6 53 18 115/74 (88) 97 Room Air 05/13/21 19:31 67 05/13/21 19:17 36.9 65 05/13/21 19:10 36.7 52 16 134/78 98 Room Air 05/13/21 16:38 Room Air 05/13/21 16:38 36.9 65 20 184/101 (128) Room Air Height & Weight Height: 5'9.00" Weight: 184lbs. oz. 83.808217wu; 26.91 BMI Method:Stated General Appearance: No Apparent Distress, WD/WN Neck: Normal Inspection Respiratory: Lungs Clear, Normal Breath Sounds, No Accessory Muscle Use, No Respiratory Distress Cardiovascular: Regular Rate, Rhythm, Normal Peripheral Pulses Capillary Refill: Less Than 3 Seconds Extremity: Normal Capillary Refill, Normal Inspection, Normal Range of Motion, Non Tender, No Calf Tenderness Neurologic/Psychiatric: Alert, Oriented x3, No Motor/Sensory Deficits, Normal Mood/Affect Skin: Normal Color, Warm/Dry Results Lab Laboratory Tests 05/13/21 16:45 Assessment/Plan Assessment/Plan Critical Care: Critically Ill Patient Time spent with patient (mins): 15 Time spent on discussion(mins): 5 PIA ORDONEZ MD May 13, 2021 22:30
[2021-05-13] MEDS: ENOXAPARIN 80 MG/0.8 ML (LOVENOX) SYR SC SCH (22:40)
[2021-05-14] VITALS (26 sets, daily range): BP systolic 110–175; BP diastolic 60–102
[2021-05-14] MEDS: NITROGLYCERIN 0.4 MG SL TABS BTL 25'S SL PRN ×2 (00:49→00:54)
[2021-05-14] MEDS: morphine INJ 4 MG/ML 1 ML (VIAL/SYRINGE) IV PRN (01:04)
[2021-05-14] MEDS ORDERED: NITROGLYCERIN 2% OINT 1 GM UNIT DOSE PACKET TOP ONE (02:00)
[2021-05-14] MEDS: fentaNYL INJ 100 MCG/2 ML AMP IVP PRN ×2 (02:20→05:04)
[2021-05-14] MEDS: ONDANSETRON 4 MG/2 ML (SDV) Z0FRAN IVP PRN ×2 (02:41→08:24)
[2021-05-14] MEDS ORDERED: fentaNYL INJ 100 MCG/2 ML AMP IVP PRN (06:15)
[2021-05-14] MEDS: MAGNESIUM 1 GM/100 ML IVPB 100 ML IV SCH (06:32)
[2021-05-14] MEDS: POTASSIUM CL 10MEQ/50ML IVPB 50 ML IV SCH (06:32)
[2021-05-14] MEDS: KCL 20 MEQ TAB (K-DUR) PO SCH (06:33)
[2021-05-14] MEDS: CATHETER FLUSH 10 ML SYR IV SCH ×3 (06:36→21:33)
[2021-05-14 06:58] LABS: BASOPHILS % (AUTO) 1 % (0-10); EOSINOPHILS # (AUTO) 0.1 10^3/uL (0.0-0.3); EOSINOPHILS % (AUTO) 1 % (0-10); HEMATOCRIT 41 % (40-54); HEMOGLOBIN 13.1 g/dL (13.3-17.7); LYMPHOCYTES # (AUTO) 1.5 10^3/uL (1.0-4.0); LYMPHOCYTES % (AUTO) 23 % (12-44); MEAN CORPUSCULAR HEMOGLOBIN 29 pg (25-34); MEAN CORPUSCULAR HGB CONC 32 g/dL (32-36); MEAN CORPUSCULAR VOLUME 90 fL (80-99); MEAN PLATELET VOLUME 10.6 fL (9.0-12.2); MONOCYTES # (AUTO) 0.4 10^3/uL (0.0-1.0); MONOCYTES % (AUTO) 6 % (0-12); NEUTROPHILS # (AUTO) 4.7 10^3/uL (1.8-7.8); NEUTROPHILS % (AUTO) 70 % (42-75); PLATELET COUNT 156 10^3/uL (130-400); WHITE BLOOD COUNT 6.7 10^3/uL (4.3-11.0)
[2021-05-14 07:06] LABS: CHLORIDE 108 MMOL/L (98-107); POTASSIUM 4.2 MMOL/L (3.6-5.0); SODIUM 142 MMOL/L (135-145)
[2021-05-14 07:07] LABS: CALCIUM 8.4 MG/DL (8.5-10.1); GLUCOSE 112 MG/DL (70-105)
[2021-05-14 07:09] LABS: CARBON DIOXIDE 24 MMOL/L (21-32)
[2021-05-14 07:11] LABS: GFR ESTIMATED > 60; PHOSPHORUS 2.3 MG/DL (2.3-4.7)
[2021-05-14 07:12] LABS: BUN/CREATININE RATIO 15
[2021-05-14 07:14] LABS: MAGNESIUM 2.1 MG/DL (1.6-2.4)
[2021-05-14] MEDS ORDERED: NS IV 1000 ML 1,000 ML ONE (07:18)
[2021-05-14] MEDS ORDERED: LIDOCAINE 1% INJ 20 ML 20 ML VIAL ONE (07:18)
[2021-05-14] MEDS ORDERED: HEParin (CATH LAB) 2,000 ML IV ONE (07:18)
--- NOTE | 2021-05-14 07:19 | History & Physicial ---
History of Present Illness History of Present Illness Reason for visit/HPI 66-year-old male presented to [facility] emergency department during the afternoon of May 13, 2020 with substernal chest pain primarily to the left side. He has a history of coronary artery disease with coronary stent placement about 20 years ago. He also admits to some nausea but no significant shortness of breath. He was also seen the day prior in the emergency department with similar chief complaint but he improved after being evaluated and medication. He does currently see Dr. Hernandez. He does admit to have an acid reflux disease but this doesn't feel the same to him. The discomfort he has reminds him of previous heart issues. He did take an aspirin prior to coming out to the emergency department on May 13, 2021. Date of Admission May 13, 2021 at 21:41 Date Seen by a Provider: May 14, 2021 Time Seen by a Provider: 06:45 I consulted on this patient on 05/14/21 07:13 Attending Physician Ronny Jones MD Admitting Physician Vasiliy Chatman MD Consult Allergies and Home Medications Allergies Uncoded Allergies: morphin (Adverse Reaction, Severe, 05/14/21) Patient Home Medication List Home Medication List Reviewed: Yes Past Cygxvcb-Hgrezy-Chathp Hx Patient Social History Marrital Status: Number of Children: 3 Alcohol Beverage of Choice: Beer Smoking Status: Never a Smoker Recent Hopitalizations: No Have you traveled recently?: No Alcohol Use?: Yes Pt feels they are or have been: No Seasonal Allergies Seasonal Allergies: No Surgeries Yes (lt shoulder reduction, bilat knee cartilage removal, STENT 2000 AND 2011) Respiratory No Cardiovascular Yes Coronary Artery Disease, High Cholesterol Neurological No Reproductive System Hx Reproductive Disorders: No Genitourinary No Gastrointestinal No Musculoskeletal No Endocrine History of Endocrine Disorders: No HEENT History of HEENT Disorders: No Cancer No Psychosocial History of Psychiatric Problem: No Integumentary History of Skin or Integumenta: No Blood Transfusions History of Blood Disorders: No Review of Systems Constitutional: see HPI Physical Exam Vital Signs Vital Signs - First Documented 05/13/21 19:10 Pulse Ox 98 Capillary Refill : Less Than 3 Seconds Height, Weight, BMI Height: 5'9.00" Weight: 184lbs. oz. 83.932309qi; 26.91 BMI Method:Stated General Appearance: Anxious, Mild Distress Eyes: Bilateral Eye Normal Inspection HEENT: Pharynx Normal Neck: Supple Respiratory: Lungs Clear Cardiovascular: Regular Rate, Rhythm, Bradycardia Gastrointestinal: Normal Bowel Sounds, Non Tender; No Guarding Rectal: Deferred Back: Normal Inspection Extremity: Normal Capillary Refill Neurologic/Psychiatric: Alert, Oriented x3 Skin: Pallor Assessment/Plan Assessment and Plan 1. Chest pain with history of coronary artery disease and stent placement -patient admitted to cardiac stepdown for further cardiac monitoring -Consultation with cardiology Emergency department has contacted cardiology on- call -[facility] 2. Chest pain very well may be angina -patient has orders for nitroglycerin as well as pain medication 3. History of gastroesophageal reflux -Protonix has been given 4. Bradycardia Admission Diagnosis 1. Chest pain with history of coronary artery disease and stent placement 2. Chest pain very well may be angina 3. History of gastroesophageal reflux 4. Bradycardia Admission Status: Inpatient Order (span 2 midnights) Reason for Inpatient Admission: cardiology evaluation and suspected he'll need cardiac catheterization Clinical Quality Measures AMI/AHF: ASA po Prior to arrival: Yes RONNY JONES MD May 14, 2021 07:19
[2021-05-14] MEDS ORDERED: fentaNYL INJ 100 MCG/2 ML AMP ONE (07:23)
[2021-05-14] MEDS ORDERED: MIDAZOLAM 5 MG/5 ML (VERSED) VIAL ONE (07:25)
[2021-05-14] MEDS ORDERED: NITRO DRIP 25000 MCG/D5W 250 ML IV ONE (07:38)
[2021-05-14] MEDS ORDERED: VERAPAMIL 5 MG/2 ML (CALAN) VIAL IV ONE (07:38)
[2021-05-14] MEDS ORDERED: HEParin 1000 UNIT/ML (10ML VIAL) FOR BOLUS ONE (07:38)
[2021-05-14] MEDS: ATENOLOL 25 MG (TENORMIN) TAB PO SCH (08:24)
[2021-05-14] MEDS: ENOXAPARIN 80 MG/0.8 ML (LOVENOX) SYR SC SCH (08:24)
--- NOTE | 2021-05-14 08:29 | Consultation-Cardiology ---
HPI-Cardiology Cardiology Consultation Date of Consultation 05/14/21 Date of Admission Time Seen by Provider: 08:24 Indication: Chest pain HPI 66 years old gentleman with history of coronary artery disease multiple stents, started to have chest pain about 5 days ago which was recurrent, yesterday became persistent, came into the emergency room again and he was admitted. On my evaluation he was having active chest pain in the retrosternal area, some difficulty breathing, slightly diaphoretic, did not respond well to morphine due to hypotension. He follows regularly with Dr. Brar, I contacted Dr. Brar and he requested that I see him. On my evaluation patient was having active chest pain, EKG and cardiac enzymes did not show any acute abnormality. Home Medications & Allergies Allergies: Uncoded Allergies: morphin (Adverse Reaction, Severe, 05/14/21) Home Medication List Reviewed: Yes VRB-Zengyr-Kuvtnt Hx Patient Social History Marital Status: Number of Children: 3 Recreational Drug Use: No (occasionally beer) Smoking Status: Never a Smoker Recent Hopitalizations: No Have you traveled recently?: No Alcohol Use?: Yes Past Medical History Discussed below Family Medical History Family Medical Hx Noncontributory Review of Systems-General Review of Systems Constitutional: see HPI EENTM: No see HPI, No no symptoms reported, No ear discharge, No hearing loss, No ear pain, No blurred vision, No double vision, No eye pain, No tearing, No vision loss, No dental problems, No hoarseness, No mouth pain, No mouth swelling, No epistaxis, No nose congestion, No nose pain, No throat pain, No throat swelling, No other Respiratory: see HPI; No cough, No dyspnea on exertion, No hemoptysis, No orthopnea, No phlegm, No short of breath, No stridor, No wheezing, No other Cardiovascular: see HPI, chest pain; No edema, No Hx of Intervention, No palpitations, No syncope, No vascular heart diseas, No other Gastrointestinal: No RUQ, No LUQ, No RLQ, No LLQ, No no symptoms reported, No see HPI, No abdominal pain, No constipation, No diarrhea, No dysphagia, No hematemesis, No heartburn, No jaundice, No loss of appetite, No melena, No nausea, No vomiting, No other Genitourinary: No no symptoms reported; see HPI; No decreased output, No discharge, No dysuria, No frequency, No hematuria, No hesitancy, No incontinence, No nocturia, No pain, No other Musculoskeletal: no symptoms reported, see HPI Skin: No no symptoms reported; see HPI; No change in color, No change in hair/nails, No dryness, No hx of skin cancer, No lesions, No lumps, No pruritus, No rash, No other Psychiatric/Neurological: Denies No Symptoms Reported; See HPI; Denies Anxiety, Denies Depressed, Denies Emotional Problems, Denies Headache, Denies Numbness, Denies Paresthesia, Denies Pre-Existing Deficit, Denies Seizure, Denies Tingling, Denies Tremors, Denies Weakness, Denies Other All Other Systems Reviewed Negative Unless Noted: Yes (Negative excepted noted.) Reviewed Test Results Reviewed Test Results Lab Laboratory Tests Test 05/13/21 16:45 05/13/21 20:25 05/14/21 01:35 Range/Units White Blood Count 5.6 6.7 4.3-11.0 10^3/uL Red Blood Count 5.30 4.58 4.30-5.52 10^6/uL Hemoglobin 15.1 13.1 L 13.3-17.7 g/dL Hematocrit 46 41 40-54 % Mean Corpuscular Volume 87 90 80-99 fL Mean Corpuscular Hemoglobin 29 29 25-34 pg Mean Corpuscular Hemoglobin Concent 33 32 32-36 g/dL Red Cell Distribution Width 13.1 13.2 10.0-14.5 % Platelet Count 172 156 130-400 10^3/uL Mean Platelet Volume 10.2 10.6 9.0-12.2 fL Immature Granulocyte % (Auto) 0 0 % Neutrophils (%) (Auto) 65 70 42-75 % Lymphocytes (%) (Auto) 26 23 12-44 % Monocytes (%) (Auto) 8 6 0-12 % Eosinophils (%) (Auto) 1 1 0-10 % Basophils (%) (Auto) 0 1 0-10 % Neutrophils # (Auto) 3.7 4.7 1.8-7.8 10^3/uL Lymphocytes # (Auto) 1.4 1.5 1.0-4.0 10^3/uL Monocytes # (Auto) 0.4 0.4 0.0-1.0 10^3/uL Eosinophils # (Auto) 0.1 0.1 0.0-0.3 10^3/uL Basophils # (Auto) 0.0 0.0 0.0-0.1 10^3/uL Immature Granulocyte # (Auto) 0.0 0.0 0.0-0.1 10^3/uL Sodium Level 141 142 135-145 MMOL/L Potassium Level 4.0 4.2 3.6-5.0 MMOL/L Chloride Level 105 108 H 98-107 MMOL/L Carbon Dioxide Level 25 24 21-32 MMOL/L Anion Gap 11 10 5-14 MMOL/L Blood Urea Nitrogen 16 15 7-18 MG/DL Creatinine 0.85 1.00 0.60-1.30 MG/DL Estimat Glomerular Filtration Rate > 60 > 60 BUN/Creatinine Ratio 19 15 Glucose Level 119 H 112 H 70-105 MG/DL Calcium Level 9.1 8.4 L 8.5-10.1 MG/DL Total Creatine Kinase 119 30-200 U/L Creatine Kinase MB 3.2 <6.6 NG/ML Troponin I < 0.028 < 0.028 < 0.028 <0.028 NG/ML Phosphorus Level 2.3 2.3-4.7 MG/DL Magnesium Level 2.1 1.6-2.4 MG/DL Physical Exam Physical Exam Vital Signs Vital Signs - First Documented 05/13/21 05/14/21 19:10 07:34 Pulse Ox 98 O2 Flow Rate 2.00 Capillary Refill : Less Than 3 Seconds Height, Weight, BMI Height: 5'9.00" Weight: 184lbs. oz. 83.717801bt; 26.91 BMI Method:Stated General Appearance: Anxious, Mild Distress Eyes: Bilateral Eye Normal Inspection HEENT: Pharynx Normal Neck: Supple Respiratory: Lungs Clear Cardiovascular: Regular Rate, Rhythm, Bradycardia Gastrointestinal: Normal Bowel Sounds, Non Tender; No Guarding Rectal: Deferred Back: Normal Inspection Extremity: Normal Capillary Refill Neurologic/Psychiatric: Alert, Oriented x3 Skin: Pallor Lymphatic: No Adenopathy A/P-Cardiology Admission Diagnosis Chest pain Coronary artery disease Hypertension Hyperlipidemia Assessment/Plan Chest pain nonspecific etiology, patient is very uncomfortable with active chest pain, in the retrosternal area, had extensive cardiac history with multiple stents in the past, discussed the management plan recommended cardiac catheterization possible PTCA Coronary artery disease, history of multiple intervention, last stress test was done in October 2019 showing no active ischemia Hypertension, controlled at this time, had few episode of hypotension after receiving morphine. Monitor blood pressure closely Hyperlipidemia, monitor lipids Nausea and vomiting, diaphoresis, feeling slightly better Sinus bradycardia. Asymptomatic, monitor heart rate Clinical Quality Measures AMI/AHF: ASA po Prior to arrival: Yes JORDEN STEVENS MD May 14, 2021 08:29
--- NOTE | 2021-05-14 08:30 | Conscious Sedation/ASA ---
Conscious Sedation Pre-Proced Time 08:29 ASA Score 3 For ASA 3 and 4: Consider anesthesia and medical clearance. Also, for patients with a history of failed moderate sedation consider anesthesia. Airway Lungs Heart ASA score ASA 1: a normal healthy patient ASA 2: a patient with a mild systemic disease (mid diabetes, controlled hypertension, obesity x ASA 3: a patient with a severe systemic disease that limits activity (angina, COPD, prior Myocardial infarction) ASA 4: a patient with an incapacitating disease that is a constant threat to life (CHF, renal failure) ASA 5: a moribund patient not expected to survive 24 hrs. (ruptured aneurysm) ASA 6: a declared brain- patient whose organs are being harvested. For emergent operations, add the letter E after the classification Mallampati Classification Grade 3 Sedation Plan Analgesia, Amnesia, Plan communicated to team members, Discussed options with patient/fam, Discussed risks with patient/fam The patient is an appropriate candidate to undergo the planned procedure, sedation, and anesthesia. The patient immediately re-assessed prior to indication. JORDEN STEVENS MD May 14, 2021 08:30
[2021-05-14] MEDS ORDERED: CLOPIDOGREL 75 MG (PLAVIX) TABLET PO SCH (09:00)
[2021-05-14] MEDS ORDERED: ASPIRIN E.C. 81 MG (ECOTRIN) TAB PO SCH (09:00)
[2021-05-14 09:16] LABS: PROTHROMBIN TIME PATIENT 13.9 SEC (12.2-14.7)
[2021-05-14] MEDS ORDERED: ASPIRIN 325 MG (5 GR) TABLET ONE (10:02)
[2021-05-14] MEDS ORDERED: TICAGRELOR 90 MG TABLET (BRILINTA) PO ONE (10:02)
--- NOTE | 2021-05-14 10:12 | Cardiac Cath Report ---
Cardiac Cath Report Physician (s)/Professional Driver (s) Physician JORDEN STEVENS MD Pre-Procedure Diagnosis Pre-Procedure Diagnosis: Chest pain Post-Procedure Note Procedure Start Date: May 14, 2021 Name of Procedure: Left heart catheterization Left ventriculogram PTCA with stent to the right coronary artery Findings/Procedure Note PROCEDURE NOTE: 66 years old gentleman with history of coronary artery disease multiple stents in the past, admitted with acute chest pain, having active chest pain, decided to proceed with cardiac catheterization possible PTCA. After explaining the procedure to the patient, all pros and cons were explained, all questions were answered. The patient signed the consent and then he was placed on the cardiac catheterization laboratory. Groin was prepped SL fashion local anesthesia was used. Sheath placed in the right radial artery, Edroy catheter was advanced to the left ventricular cavity, left ventriculogram was done, pulled back and intubated the left coronary system and angiogram was done then turned to the right coronary system and angiogram was done. Patient noted to have severe stenosis at 2 segment at the proximal and mid right coronary artery, decision to proceed with percutaneous intervention was made. Patient received a total of 6000 units of heparin, I started the procedure with FR guide and BMW wire, advanced into the distal right coronary artery, I had difficulty advancing the balloon but was able to advance 3.5 x 20 mm balloon and inflated in the mid lesion with multiple inflation with significant resistance then inflated in the proximal area. I was unable to advance a stent, used additional wire, tried multiple ways without success, I readvanced a noncompliant 3.0 balloon and did high-pressure inflation in the mid lesion without success and advancing the stent. At that point I decided to use a different guide, I used AR-1 guide and advanced a BMW wire, I had difficulty advancing the initial stent but I was successful to cross the mid lesion distal to the old stent and deployed 3.5 x 12 mm Twyla postdilated to 3.8 mm with excellent results. The proximal lesion received 3.5 x 15 mm Twyla postdilated to 3.8 mm with excellent results. At the end of the procedure the sheath was removed. Vascular band deployed FINDINGS: Hemodynamics LV 94/5, end-diastolic pressure of 5 Aorta 102/54 mean of 75 ANATOMY: Left Main has no obstructive disease Left Anterior Descending has patent stent in the mid section, proximally there is mild to moderate disease nonobstructive disease Left Circumflex is small artery with mild disease Right Coronary Artery is large dominant artery with multiple stent in the mid and distal right coronary artery, proximally there is a severe stenosis proximal to the stent and just immediately after the mid stent there is an area of severe stenosis, complex intervention with multiple balloon then deployment of 2 Twyla stent proximally using 3.5 x 15 mm expanded to 3.8 mm under high pressure and at the midportion 3.5 x 12 mm expanded to 3.8 mm under high pressure with excellent results LV Gram was done showing normal left ventricular size, normal contractility, ejection fraction 60% CONCLUSION: 1. Severe stenosis in the right coronary artery proximal to mid stent and distal to the mid stent resistant with complex intervention using multiple guide and multiple balloon then deployment of 2 Twyla stent proximally 3.5 x 15 mm expanded to 3.8 mm and midportion 3.5 mm x 12 mm expanded to 3.8 mm with excellent results, distally mild disease, the stent at the distal right coronary artery has mild disease 2. Patent stent in the mid LAD with mild to moderate stenosis proximal and distal portion 3. Small circumflex artery with mild disease nonobstructive disease 4. Normal left ventricular size, ejection fraction 60% DISCUSSION AND RECOMMENDATION: Patient was started on aspirin and Brilinta, discontinued Plavix, evaluate lipid profile, continue to maximize medical therapy Anesthesia Type: Conscious Sedation Estimated blood loss (mL): 30 ml Contrast Amount: 65 ml Total Radiation Dose: 1431 mGy Post-Procedure Diagnosis Post-operative diagnosis: Chest pain Coronary artery disease Hypertension Hyperlipidemia JORDEN STEVENS MD May 14, 2021 10:12
[2021-05-14] MEDS ORDERED: PATIENT MAY USE OWN MEDS, ALL PO SCH (10:15)
--- NOTE | 2021-05-14 11:20 | Pulmonary Progress Note ---
Subjective Date Seen by a Provider: May 14, 2021 Time Seen by a Provider: 11:08 Subjective/Events-last exam 66 yo M Hx of HLD, CAD, s/p stents, got 2 stents placed, RCA, on DPT, looks ok, no chest pain, no SOB, cath site right radial, looks ok Sepsis Event Evaluation Height, Weight, BMI Height: 5'9.00" Weight: 184lbs. oz. 83.169073rw; 26.91 BMI Method:Stated Exam Exam Patient acknowledged, consented, and participated in this virtual visit which was conducted using real time audio/video Vital Signs Date Time Temp Pulse Resp B/P (MAP) Pulse Ox O2 Delivery O2 Flow Rate FiO2 05/14/21 08:00 60 11 141/83 (102) 100 Room Air 05/14/21 07:37 36.4 05/14/21 07:34 98 Nasal Cannula 2.00 05/14/21 07:00 52 26 148/73 (98) 100 Room Air 05/14/21 06:46 58 05/14/21 06:00 56 29 148/79 (102) 99 Room Air 05/14/21 05:00 49 11 134/78 (96) 99 Room Air 05/14/21 04:00 76 22 129/73 (91) 97 Room Air 05/14/21 03:33 97 Room Air 05/14/21 03:00 53 22 149/81 (103) 96 Room Air 05/14/21 02:00 51 15 118/60 (79) 96 Room Air 05/14/21 01:00 67 05/14/21 01:00 67 15 111/71 (84) 94 Room Air 05/14/21 00:00 97 Room Air 05/14/21 00:00 47 26 132/71 (91) 98 Room Air 05/13/21 23:00 49 26 120/64 (88) 96 Room Air 05/13/21 22:45 51 25 119/71 (87) 97 Room Air 05/13/21 22:30 52 9 122/72 (91) 96 Room Air 05/13/21 22:15 56 41 109/57 (79) 96 Room Air 05/13/21 22:00 56 28 123/104 (111) 99 Room Air 05/13/21 21:45 53 19 119/71 (85) 95 Room Air 05/13/21 21:41 55 38 106/66 (79) 93 Room Air 05/13/21 20:14 36.6 53 18 115/74 (88) 97 Room Air 05/13/21 19:33 97 Room Air 05/13/21 19:31 67 05/13/21 19:17 36.9 65 05/13/21 19:10 36.7 52 16 134/78 98 Room Air 05/13/21 16:38 Room Air 05/13/21 16:38 36.9 65 20 184/101 (128) Room Air I & O 05/14/21 07:00 Intake Total 1200 ml Output Total 925 ml Balance 275 ml Height & Weight Height: 5'9.00" Weight: 184lbs. oz. 83.358472sf; 26.91 BMI Method:Stated General Appearance: No Apparent Distress, Anxious, Mild Distress HEENT: Pharynx Normal Neck: Supple Respiratory: Lungs Clear Cardiovascular: Regular Rate, Rhythm, Bradycardia Capillary Refill: Less Than 3 Seconds Gastrointestinal: normal bowel sounds, non tender Extremity: Normal Capillary Refill Neurologic/Psychiatric: Alert, Oriented x3 Skin: Pallor, Other (right hand has good pulses) Lymphatic: No Adenopathy Results Lab Laboratory Tests 05/13/21 16:45 05/14/21 01:35 Assessment/Plan Assessment/Plan CAD, s/p RCA stents, will watch, so far doing ok Time spent with patient (mins): 10 PIA ALLEN MD May 14, 2021 11:20
[2021-05-14] MEDS ORDERED: FEXO-46 PO (14:09)
[2021-05-14] MEDS ORDERED: MULT1CAP21 PO (14:09)
[2021-05-14] MEDS ORDERED: CALC-666 PO (14:09)
[2021-05-14] MEDS ORDERED: GLUC100016 PO (14:09)
[2021-05-14] MEDS ORDERED: OMEG-160 PO (14:09)
[2021-05-14] MEDS ORDERED: ATOR80TA76 PO (14:09)
[2021-05-14] MEDS ORDERED: CLOP75TA28 PO (14:09)
[2021-05-14] MEDS ORDERED: POTA99TA18 PO (14:09)
[2021-05-14] MEDS ORDERED: DICL100G31 TP (14:09)
[2021-05-14] MEDS ORDERED: UBID100C17 PO (14:09)
[2021-05-14] MEDS ORDERED: ACET-2267 PO (14:09)
[2021-05-14] MEDS ORDERED: CALC-823 PO (14:09)
[2021-05-14] MEDS ORDERED: ASPI325T32 PO (14:09)
[2021-05-14] MEDS: NS IV 1000 ML 1,000 ML IV SCH ×2 (16:22→17:23)
[2021-05-14] MEDS: TICAGRELOR 90 MG TABLET (BRILINTA) PO SCH (21:33)
[2021-05-15] VITALS (7 sets, daily range): BP systolic 98–150; BP diastolic 66–88
[2021-05-15 04:27] LABS: BASOPHILS % (AUTO) 0 % (0-10); EOSINOPHILS # (AUTO) 0.1 10^3/uL (0.0-0.3); EOSINOPHILS % (AUTO) 1 % (0-10); HEMATOCRIT 43 % (40-54); HEMOGLOBIN 13.5 g/dL (13.3-17.7); LYMPHOCYTES # (AUTO) 1.8 10^3/uL (1.0-4.0); LYMPHOCYTES % (AUTO) 26 % (12-44); MEAN CORPUSCULAR HEMOGLOBIN 28 pg (25-34); MEAN CORPUSCULAR HGB CONC 32 g/dL (32-36); MEAN CORPUSCULAR VOLUME 88 fL (80-99); MEAN PLATELET VOLUME 10.1 fL (9.0-12.2); MONOCYTES # (AUTO) 0.5 10^3/uL (0.0-1.0); MONOCYTES % (AUTO) 7 % (0-12); NEUTROPHILS # (AUTO) 4.6 10^3/uL (1.8-7.8); NEUTROPHILS % (AUTO) 66 % (42-75); PLATELET COUNT 168 10^3/uL (130-400); WHITE BLOOD COUNT 6.9 10^3/uL (4.3-11.0)
[2021-05-15 04:53] LABS: BUN/CREATININE RATIO 13; CALCIUM 8.3 MG/DL (8.5-10.1); CARBON DIOXIDE 25 MMOL/L (21-32); CHLORIDE 107 MMOL/L (98-107); CHOLESTEROL 110 MG/DL (< 200); CREATININE SERUM 0.79 MG/DL (0.60-1.30); GFR ESTIMATED > 60; GLUCOSE 94 MG/DL (70-105); HDL CHOLESTEROL 33 MG/DL (40-60); PHOSPHORUS 2.4 MG/DL (2.3-4.7); POTASSIUM 3.7 MMOL/L (3.6-5.0); SODIUM 140 MMOL/L (135-145); TRIGLYCERIDES 151 MG/DL (<150); VLDL CHOLESTEROL 30 MG/DL (5-40)
[2021-05-15] MEDS: KCL 20 MEQ TAB (K-DUR) PO SCH (05:36)
[2021-05-15] MEDS: NS IV 1000 ML 1,000 ML IV SCH (05:36)
[2021-05-15] MEDS: POTASSIUM CL 10MEQ/50ML IVPB 50 ML IV SCH (05:36)
[2021-05-15] MEDS: MAGNESIUM 1 GM/100 ML IVPB 100 ML IV SCH (05:36)
[2021-05-15] MEDS: CATHETER FLUSH 10 ML SYR IV SCH (06:25)
[2021-05-15] MEDS ORDERED: TICA90TA PO (06:45)
[2021-05-15] MEDS ORDERED: ASPI-1238 PO (06:45)
--- NOTE | 2021-05-15 06:46 | Discharge Inst-Post CATH ---
Discharge Inst-CATH/EP Problems Reviewed?: Yes Post Cardiac Cath/EP D/C Inst Follow Up/Plan Appointment with Dr Hernandez in 2 weeks <b>CARDIAC CATH/EP PROCEDURE DISCHARGE INSTRUCTIONS</b> ACTIVITY * Go Home directly and rest. * Limit activity of the leg (or wrist if it was used) for 7 days including aerobics, swimming, jogging, bicycling, etc. * Restrict stair-climbing for 7 days if possible, if not, climb up with your non-cath leg, then bring together on the same step. * Avoid lifting, pushing, pulling or excessive movement of the affected extremity for 7 days. * Customary sexual activity may be resumed after 2 days-use caution not to use a position that strains or causes pain to the affected extremity. * No driving for 24 hours. * NO SMOKING. * Avoid straining for bowel movements for 7 days. * Gentle walking on level ground is allowed. * Returning to work will depend on the type of procedure and the results. Your doctor will discuss this with you. CALL YOUR DOCTOR FOR ANY OF THE FOLLOWING: *If bleeding from the puncture site occurs- Apply gentle pressure to site with clean cloth and call your doctor or EMS. * If a knot or lump forms under the skin, increases in size, or causes pain. * If bruising appears to be worsening or moving further down your leg instead of disappearing. * Temperature above 101 F. CARE OF YOUR GROIN INCISION; * Bruising or purple discoloration of the skin near the puncture site is common. * You may shower only, no bathtub bathing for 5 days. Be careful to avoid slipping as your leg may feel stiff. * If a closure device was used on your femoral artery, please see the attached guide regarding care of the device and your leg. * Leave dressing on FOR 24 hours. CARE OF YOUR WRIST INCISION; * Bruising or purple discoloration of the skin near the puncture site is common. * You may shower. * DO NOT submerge wrist. * Leave dressing on FOR 24 hours. JORDEN STEVENS MD May 15, 2021 06:46
--- NOTE | 2021-05-15 07:34 | Progress Note ---
Subjective Date Seen by a Provider: May 15, 2021 Time Seen by a Provider: 06:55 Subjective/Events-last exam Patient is feeling much better. He has nausea and chest pain has resolved now. He does report today to methat his acid reflux does bother him and he would like to get on his Protonix when he is outpatient as well. Objective Exam Vital Signs Date Time Temp Pulse Resp B/P (MAP) Pulse Ox O2 Delivery O2 Flow Rate FiO2 05/15/21 06:00 54 19 119/82 (94) 97 Room Air 05/15/21 05:00 50 12 111/67 (82) 97 Room Air 05/15/21 04:00 56 11 130/76 (94) 97 Room Air 05/15/21 04:00 97 Room Air 05/15/21 03:00 64 16 150/88 (108) 97 Room Air 05/15/21 02:00 52 13 98/66 (77) 94 Room Air 05/15/21 01:00 60 05/15/21 01:00 54 13 105/69 (81) 94 Room Air 05/15/21 00:00 52 20 101/77 (85) 96 Room Air 05/14/21 23:32 97 Room Air 05/14/21 23:00 67 13 115/70 (85) 92 Room Air 05/14/21 22:00 58 20 117/75 (89) 95 Room Air 05/14/21 21:48 97 Room Air 2.00 05/14/21 21:00 54 23 127/81 (96) 96 Room Air 05/14/21 20:00 98 Room Air 05/14/21 20:00 61 19 130/81 (97) 97 Room Air 05/14/21 20:00 37.0 05/14/21 19:00 60 05/14/21 19:00 59 26 110/70 (83) 96 Room Air 05/14/21 18:00 56 28 150/82 (104) 97 Room Air 05/14/21 17:00 56 27 136/77 (96) 97 Room Air 05/14/21 16:06 97 Room Air 05/14/21 16:00 37.0 05/14/21 16:00 56 9 136/91 (106) 97 Room Air 05/14/21 15:00 64 32 143/91 (108) 97 Room Air 05/14/21 14:00 75 18 174/80 (111) 98 Room Air 05/14/21 13:00 61 17 170/102 (124) 97 Room Air 05/14/21 12:36 58 05/14/21 12:35 98 Room Air 05/14/21 12:00 55 10 156/90 (112) 97 Room Air 05/14/21 11:48 36.6 05/14/21 11:30 54 15 175/88 (117) 98 Room Air 05/14/21 11:15 62 31 162/81 (108) 98 Room Air 05/14/21 11:00 58 11 163/89 (113) 97 Room Air 05/14/21 10:45 55 8 161/89 (113) 97 Room Air 05/14/21 10:30 51 41 156/78 (104) 97 Room Air 05/14/21 08:00 60 11 141/83 (102) 100 Room Air 05/14/21 07:40 98 Room Air 05/14/21 07:37 36.4 05/14/21 07:34 98 Nasal Cannula 2.00 I & O 05/15/21 07:00 Intake Total 1490 ml Output Total 2500 ml Balance -1010 ml Capillary Refill : Less Than 3 Seconds General Appearance: No Apparent Distress Respiratory: Lungs Clear Cardiovascular: Regular Rate, Rhythm Skin: Normal Color Results Lab Laboratory Tests 05/14/21 08:53: Prothrombin Time 13.9, INR Comment 1.0, Activated Partial Thromboplast Time 33 05/15/21 03:52: White Blood Count 6.9, Red Blood Count 4.83, Hemoglobin 13.5, Hematocrit 43, Mean Corpuscular Volume 88, Mean Corpuscular Hemoglobin 28, Mean Corpuscular Hemoglobin Concent 32, Red Cell Distribution Width 13.2, Platelet Count 168, Mean Platelet Volume 10.1, Immature Granulocyte % (Auto) 0, Neutrophils (%) (Auto) 66, Lymphocytes (%) (Auto) 26, Monocytes (%) (Auto) 7, Eosinophils (%) (Auto) 1, Basophils (%) (Auto) 0, Neutrophils # (Auto) 4.6, Lymphocytes # (Auto) 1.8, Monocytes # (Auto) 0.5, Eosinophils # (Auto) 0.1, Basophils # (Auto) 0.0, Immature Granulocyte # (Auto) 0.0, Sodium Level 140, Potassium Level 3.7, Chloride Level 107, Carbon Dioxide Level 25, Anion Gap 8, Blood Urea Nitrogen 10, Creatinine 0.79, Estimat Glomerular Filtration Rate > 60, BUN/Creatinine Ratio 13, Glucose Level 94, Calcium Level 8.3L, Phosphorus Level 2.4, Magnesium Level 2.0, Triglycerides Level 151H, Cholesterol Level 110, LDL Cholesterol Direct 47, VLDL Cholesterol 30, HDL Cholesterol 33L Assessment/Plan Assessment/Plan Assess & Plan/Chief Complaint 1. Chest painnow resolved 2. Coronary artery disease -Stenting performed yesterday by cardiology gave him excellent clinical results 3. History of gastroesophageal reflux -Protonix will be called into his local pharmacy Clinical Quality Measures Admission Status Admission Dx 1. Chest pain with history of coronary artery disease and stent placement 2. Chest pain very well may be angina 3. History of gastroesophageal reflux 4. Bradycardia AMI/AHF: ASA po Prior to arrival: Yes RONNY JONES MD May 15, 2021 07:34
[2021-05-15] MEDS: TICAGRELOR 90 MG TABLET (BRILINTA) PO SCH (08:11)
[2021-05-15] MEDS: ATENOLOL 25 MG (TENORMIN) TAB PO SCH (08:11)
[2021-05-15] MEDS ORDERED: ASPIRIN E.C. 81 MG (ECOTRIN) TAB PO SCH (09:00)
--- NOTE | 2021-05-15 10:21 | Cardiology Progress Note ---
Subjective Date Seen by Provider: May 15, 2021 Time Seen by Provider: 08:00 Subjective/Events-last exam Patient was seen and evaluated, feeling better, reporting significant improvement in his chest pain Review of Systems General: No Chills, No Night Sweats, No Fatigue, No Malaise, No Appetite, No Other HEENT: No Head Aches, No Visual Changes, No Eye Pain, No Ear Pain, No Dysphasia, No Sinus Congestion, No Post Nasal Drip, No Sore Throat, No Other Pulmonary: No Dyspnea, No Cough, No Pleuritic Chest Pain, No Other Cardiovascular: No: Chest Pain, Palpitations, Orthopnea, Paroxysmal Noc. Dyspnea, Edema, Lt Headedness, Other Objective-Cardiology Exam Last Set of Vital Signs Vital Signs 05/14/21 05/15/21 05/15/21 05/15/21 21:48 06:00 08:17 08:18 Temp 36.8 Pulse 54 Resp 19 B/P (MAP) 119/82 (94) Pulse Ox 96 O2 Delivery Room Air O2 Flow Rate 2.00 Capillary Refill : Less Than 3 Seconds I&O Intake and Output 05/15/21 00:00 Intake Total 250 ml Output Total 2725 ml Balance -2475 ml Intake Oral 250 ml Output Urine Total 2725 ml General: Alert, Oriented X3, Cooperative HEENT: Atraumatic, PERRLA Neck: Supple, No JVD, No Thyromegaly Lungs: Clear to Auscultation, Normal Air Movement Heart: Regular Rate, Normal S1, Normal S2, No Murmurs Abdomen: Normal Bowel Sounds, Soft, No Tenderness, No Hepatosplenomegaly, No Masses Extremities: No Clubbing, No Cyanosis, No Edema, Normal Pulses, No Tenderness/Swelling Skin: No Rashes, No Breakdown, No Significant Lesion Neuro: Normal Gait, Normal Speech, Strength at 5/5 X4 Ext, Normal Tone, Sensa tion Intact Psych/Mental Status: Mental Status NL, Mood NL Results Lab Laboratory Tests 05/15/21 03:52 A/P-Cardiology Admission Diagnosis Chest pain Coronary artery disease Hypertension Hyperlipidemia Assessment/Plan Chest pain nonspecific etiology, Reporting improvement, feeling better. Continue to monitor Coronary artery disease, history of multiple intervention, cardiac catheteri zation was carried out yesterday with 2 stents to the right coronary artery, patient now has total of 4 stents in the right coronary artery, reporting significant improvement in his symptoms, no further episodes of chest pain. I started him on Brilinta instead of Plavix, arrange for follow-up with Dr. Hernandez. Coronary artery disease, history of multiple intervention, last stress test was done in October 2019 showing no active ischemia Hypertension, controlled at this time, had few episode of hypotension after receiving morphine. Monitor blood pressure closely Hyperlipidemia, monitor lipids Nausea and vomiting, diaphoresis, feeling slightly better Sinus bradycardia. Asymptomatic, monitor heart rate Clinical Quality Measures AMI/AHF: ASA po Prior to arrival: Yes JORDEN STEVENS MD May 15, 2021 10:21
== END 2021-05-15 09:57 | disposition home or self-care (01) | DRG 247 ==
LOC: EDUNIT# 16:36 → ER 16:37 → CSD 18:00 → OBSVTOIN 21:41 → ICU 21:42
PROVIDERS: ADMIT Family Medicine; ATTEND Family Medicine
PROC: 027035Z Dilation of Coronary Artery, One Artery with Two Drug-eluting Intraluminal Devices, Percutaneous Approach (ICD-10-PCS; principal; 2021-05-14)
PROC: 4A023N7 Measurement of Cardiac Sampling and Pressure, Left Heart, Percutaneous Approach (ICD-10-PCS; 2021-05-14)
PROC: B2111ZZ Fluoroscopy of Multiple Coronary Arteries using Low Osmolar Contrast (ICD-10-PCS; 2021-05-14)
PROC: B2151ZZ Fluoroscopy of Left Heart using Low Osmolar Contrast (ICD-10-PCS; 2021-05-14)
DX: I25.110 Atherosclerotic heart disease of native coronary artery with unstable angina pectoris (principal); Z95.5 Presence of coronary angioplasty implant and graft; E78.00 Pure hypercholesterolemia, unspecified; E78.5 Hyperlipidemia, unspecified; K21.9 Gastro-esophageal reflux disease without esophagitis; R00.1 Bradycardia, unspecified; I10 Essential (primary) hypertension
CPT/HCPCS: 36415; 80048; 80061; 82550; 82553; 83735; 84100; 84484; 85025; 85027; 85610; 85730; 87081; 93005; 93458; G0378